=== PATIENT | male | born 1970 | race Hispanic/Latino ===

== ENCOUNTER 2019-10-23 06:17 | Day surgery (SDC) | payer OTHER ==
[2019-10-23] MEDS ORDERED: SODIUM CHLORIDE 0.9% 1000 ML 1,000 ML ONE (07:07)
[2019-10-23] MEDS ORDERED: SODIUM CHLORIDE 0.9% 1000 ML 1,000 ML IV SCH (07:30)
[2019-10-23] MEDS ORDERED: WATER FOR IRRIG STERILE 1,000 ML BOTTLE ONE (07:41)
[2019-10-23] MEDS ORDERED: WATER FOR IRRIG STERILE 250 ML BOTTLE IR ONE (07:42)
[2019-10-23] MEDS ORDERED: propofoL 200 MG/20 ML VIAL IV ONE ×2 (07:47)
[2019-10-23] MEDS ORDERED: LIDOCAINE MPF (2%) 20 MG/1 ML VIAL 5 ML ONE (07:52)
--- NOTE | 2019-10-23 07:58 | Anesthesia Consultation ---
Anesthesia Consult and Med Hx Date of service: 10/23/19 - Airway Anesthetic Teeth Evaluation: Good ROM Head & Neck: Adequate Mental/Hyoid Distance: Adequate Mallampati Class: Class II Intubation Access Assessment: Probably Good - Pre-Operative Health Status ASA Pre-Surgery Classification: ASA2 Proposed Anesthetic Plan: MAC - Cardiovascular System Hx Hypertension: Yes - Gastrointestinal Hx Ulcer: Yes (Crohn's disease, s/p small bowel resection) Hx Gastroesophageal Reflux Disease: Yes - Hematic Hx Anemia: Yes
--- NOTE | 2019-10-23 07:58 | Anesthesia Day of Surgery ---
Anesthesia Day of Surgery - Day of Surgery Patient Examined: Yes Patient H&P Reviewed: Yes Patient is NPO: Yes
--- NOTE | 2019-10-23 08:53 | Procedure Note ---
Date of procedure: 10/23/19 Pre-op diagnosis: Colon Polyp Screening/ Diarrhea Post-op diagnosis: other (No Colon Polyps noted/ No Diverticuli noted/ R/O Microscopic Colitis) Procedure: Colonoscopy with Biopsy Anesthesia: MAC Surgeon: FLORA RED Estimated blood loss: minimal Pathology: list Specimen disposition: to lab Condition: stable Disposition: same day (Avoid aspirin and NSAID for 4 days; otherwise resume home medication. Rj use OTC anti-diarrhea medication as needed.)
--- NOTE | 2019-10-23 08:58 | Operative Report ---
PROCEDURE: Colonoscopy with biopsy. INDICATIONS: A 49-year-old gentleman who has a prior history of partial small bowel resection because of intestinal obstruction. He has been sent here for evaluation for colonoscopy as part of colon polyp screening and also to see whether he may have any associated colitis. The procedure was done after getting informed consent with MAC anesthesia. Initial rectal exam was unremarkable. Instrument was passed through the rectum onto the cecum, which was identified with ileocecal valve and appendiceal orifice. The cecum, ascending colon, transverse colon, descending colon, and sigmoid showed normal mucosa. Random biopsies were done to rule out for possible microscopic colitis. The terminal ileum was not intubated and the rectum showed mild to moderate internal hemorrhoid. There was minimal bleeding associated with the procedure. No complications associated with the procedure. ASSESSMENT: Colon polyp screening, no colon polyps noted, diarrhea, history of diarrhea, possibly secondary to partial small bowel resection, biopsy was done to rule out for microscopic colitis, mild to moderate internal hemorrhoid. PLAN: To encourage the patient to take [id number] antidiarrheal medicines, avoid aspirin and aspirin-related products for the next 4-5 days. Otherwise, resume home medication and follow up in the office in 1-2 weeks' time. The procedure was done in the GI lab with assistance of the GI lab team, which included Erendira Hugo and with assistance of anesthesia. JOB# [id number] ELDON/RUI
[2019-10-23 09:20] VITALS: BP 116/71
--- NOTE | 2019-10-23 12:03 | Post Anesthesia Evaluation ---
- Post Anesthesia Evaluation Patient Participated: Yes Airway Patent: Yes Stable Respiratory Function: Yes Nausea/Vomiting: No Temp > 96.8F: Yes Pain Manageable: Yes Adequeate Hydration: Yes Anesthesia Complications: No
== END 2019-10-23 10:00 | disposition home or self-care (01) ==
LOC: GIO 06:17
DX: R19.7 Diarrhea, unspecified (principal); K64.8 Other hemorrhoids; I10 Essential (primary) hypertension; K21.9 Gastro-esophageal reflux disease without esophagitis; K62.89 Other specified diseases of anus and rectum; Z79.899 Other long term (current) drug therapy; Z86.2 Personal history of diseases of the blood and blood-forming organs and certain disorders involving the immune mechanism; Z88.8 Allergy status to other drugs, medicaments and biological substances; Z80.0 Family history of malignant neoplasm of digestive organs
CPT/HCPCS: 45380; 88305; J2704; J7030